=== PATIENT | male | born 1955 | race Two or more races ===

== ENCOUNTER 2020-06-08 15:47 | Outpatient (REF) | payer MEDICARE, SELFPAY | END 2020-06-08 15:48 | disposition home or self-care (01) | LOC: HO.LAB 15:47 | PROVIDERS: Visit Provider Internal Medicine | DX: Z20.828 Contact with and (suspected) exposure to other viral communicable diseases (principal) | CPT/HCPCS: C9803; U0003 ==

== ENCOUNTER 2020-07-19 16:18 | Outpatient (REF) | payer MEDICARE, SELFPAY ==
--- NOTE | ~2020-07-19 | US_ITS ---
EXAMINATION: US SOFT TISSUE OF THE NECK CLINICAL INFORMATION: Enlarged lymph nodes. COMPARISON: None TECHNIQUE: Linear transducer grayscale and color Doppler examination of the submandibular left neck. FINDINGS: Imaging to the left submandibular neck reveals two small lymph nodes measuring 0.74 cm with central fatty hilum and a 0.45 cm mid neck lymph node with a fatty hilum. These are benign. No additional lymph nodes or mass seen. US/US soft tiss head and/or neck IMPRESSION: There are two benign-appearing left neck lymph nodes in the submandibular space and left mid neck.
== END 2020-07-19 16:19 | disposition home or self-care (01) ==
LOC: HO.US 16:18
PROVIDERS: PCP Internal Medicine; Visit Provider Nurse Practitioner Family
DX: J02.9 Acute pharyngitis, unspecified (principal); R59.0 Localized enlarged lymph nodes
CPT/HCPCS: 76536

== ENCOUNTER 2021-10-18 09:34 | Outpatient (REF) | payer OTHER, SELFPAY ==
--- NOTE | ~2021-10-18 | XR_ITS ---
EXAMINATION: XR FOOT, RIGHT CLINICAL INFORMATION: Disorders of bone COMPARISON: None TECHNIQUE: AP, lateral, and oblique views of the right foot. FINDINGS: Bones of the midfoot are well aligned. No tarsal, metatarsal or phalangeal fracture. Mild diffuse degenerative changes of scattered IP joints. No focal soft tissue swelling. No radiopaque foreign body. Small posterior and plantar calcaneal enthesophytes. No gross ankle joint effusion. Facet calcifications noted. XR/XR foot RT min 3V IMPRESSION: Mild diffuse degenerative changes of the right foot. No fracture.
== END 2021-10-18 09:35 | disposition home or self-care (01) ==
LOC: HO.XRAY 09:34
PROVIDERS: PCP Internal Medicine; Visit Provider Internal Medicine
DX: M89.8X7 Other specified disorders of bone, ankle and foot (principal)
CPT/HCPCS: 73630

== ENCOUNTER → 2022-09-16 10:33 | Outpatient (REF) | payer OTHER, SELFPAY ==
--- NOTE | 2022-09-16 10:42 | ECG_ITS ---
Test Reason : CAD I25.118, R00.1 BRADYCARDIA, HYPOMAGNESEMIA E83.42 Blood Pressure : / mmHG Vent. Rate : 061 BPM Atrial Rate : 061 BPM P-R Int : 168 ms QRS Dur : 098 ms QT Int : 382 ms P-R-T Axes : 029 034 095 degrees QTc Int : 384 ms Normal sinus rhythm with sinus arrhythmia Nonspecific T wave abnormality Abnormal ECG No previous ECGs available Referred By: Glenny Jett Electronically Signed By:CATHERINE MACIAS MD
== END ==
LOC: HO.CARD 10:33
PROVIDERS: PCP Internal Medicine; Visit Provider Internal Medicine
DX: I25.118 Atherosclerotic heart disease of native coronary artery with other forms of angina pectoris (principal); R00.1 Bradycardia, unspecified; E83.42 Hypomagnesemia
CPT/HCPCS: 93005

== ENCOUNTER 2023-03-13 10:39 | Outpatient (REF) | payer OTHER, SELFPAY | END 2023-03-13 10:40 | disposition home or self-care (01) | LOC: HO.HHCL 10:39 | PROVIDERS: Visit Provider Internal Medicine | DX: E11.36 Type 2 diabetes mellitus with diabetic cataract (principal) | CPT/HCPCS: 36415; 80048; 80061; 82043; 82570; 84443 ==

== ENCOUNTER 2023-10-21 12:51 | Outpatient (REF) | payer OTHER, SELFPAY ==
--- NOTE | ~2023-10-21 | US_ITS ---
EXAMINATION: US arterial duplex LE BI CLINICAL INFORMATION: DECREASED PEDAL AND POPLITEAL PULSES TECHNIQUE: Real-time ultrasound and Doppler techniques (integrating B-mode 2-D vascular images, Doppler spectral analysis and color flow Doppler imaging) were utilized to interrogate the lower extremities. COMPARISON: None FINDINGS: RIGHT LEG: Common femoral artery: 115 cm/s, Triphasic Profunda femoris artery: 73 cm/s, Triphasic Superficial femoral artery (proximal): 107 cm/s, Triphasic Superficial femoral artery (mid): 83 cm/s, Triphasic Superficial femoral artery (distal): 91 cm/s, Triphasic Popliteal artery: 58 cm/s, Triphasic Posterior tibial artery: 71 cm/s, monophasic Peroneal artery: 47 cm/sec, triphasic LEFT LEG: Common femoral artery: 78 cm/s, triphasic Profunda femoris artery: 57 cm/s, biphasic Superficial femoral artery (proximal): 83 cm/s, Triphasic Superficial femoral artery (mid): 77 cm/s, Triphasic Superficial femoral artery (distal): 86 cm/s, Triphasic Popliteal artery: 85 cm/s, Triphasic Posterior tibial artery: 78 cm/s, Triphasic Peroneal artery: 62 cm/sec, triphasic US/US arterial duplex LE BI IMPRESSION: There is no evidence of any hemodynamically significant lower extremity arterial disease by waveform or duplex Doppler criteria at rest.
== END 2023-10-21 12:52 | disposition home or self-care (01) ==
LOC: HO.US 12:51
PROVIDERS: PCP Internal Medicine; Visit Provider Internal Medicine
DX: I25.118 Atherosclerotic heart disease of native coronary artery with other forms of angina pectoris (principal); E11.36 Type 2 diabetes mellitus with diabetic cataract; I10 Essential (primary) hypertension; R09.89 Other specified symptoms and signs involving the circulatory and respiratory systems
CPT/HCPCS: 93925

== ENCOUNTER 2023-10-31 12:21 | Outpatient (REF) | payer OTHER, SELFPAY ==
--- NOTE | ~2023-10-31 | XR_ITS ---
EXAMINATION: XR RIGHT SHOULDER XR THORACIC SPINE CLINICAL INFORMATION: Order states pain of right shoulder and upper back pain. Patient states he did not fall and has had the pain since [place]. TECHNIQUE: 3 views of the thoracic spine. 4 views of the right shoulder. COMPARISON: None available. FINDINGS: RIGHT SHOULDER: Moderate degenerative changes in the acromioclavicular joint with joint space narrowing and hypertrophic change. Median sternotomy wires partially imaged. Degenerative changes with hypertrophic change along the glenoid. Small soft tissue calcifications best seen along the superior aspect of the glenohumeral joint on the lateral view as well as along the anterior and posterior aspects of the humeral head on the axial view. THORACIC SPINE: Dextroscoliosis of the thoracic spine with degenerative changes and prominent anterior osteophytes most notable in the [id number] spine. Median sternotomy wires and mediastinal clips. Degenerative changes on very limited images of the cervical spine could be evaluated with dedicated cervical spine radiographs. XR/XR thoracic spine 2V IMPRESSION: 1. Moderate degenerative changes right acromioclavicular joint. 2. Degenerative changes right glenohumeral joint with soft tissue calcifications. 3. Dextroscoliosis of the thoracic spine with degenerative changes. 4. Degenerative changes on very limited images of the cervical spine could be evaluated with dedicated cervical spine radiographs.
--- NOTE | ~2023-10-31 | XR_ITS ---
EXAMINATION: XR RIGHT SHOULDER XR THORACIC SPINE CLINICAL INFORMATION: Order states pain of right shoulder and upper back pain. Patient states he did not fall and has had the pain since [place]. TECHNIQUE: 3 views of the thoracic spine. 4 views of the right shoulder. COMPARISON: None available. FINDINGS: RIGHT SHOULDER: Moderate degenerative changes in the acromioclavicular joint with joint space narrowing and hypertrophic change. Median sternotomy wires partially imaged. Degenerative changes with hypertrophic change along the glenoid. Small soft tissue calcifications best seen along the superior aspect of the glenohumeral joint on the lateral view as well as along the anterior and posterior aspects of the humeral head on the axial view. THORACIC SPINE: Dextroscoliosis of the thoracic spine with degenerative changes and prominent anterior osteophytes most notable in the [id number] spine. Median sternotomy wires and mediastinal clips. Degenerative changes on very limited images of the cervical spine could be evaluated with dedicated cervical spine radiographs. XR/XR shoulder RT min 2V IMPRESSION: 1. Moderate degenerative changes right acromioclavicular joint. 2. Degenerative changes right glenohumeral joint with soft tissue calcifications. 3. Dextroscoliosis of the thoracic spine with degenerative changes. 4. Degenerative changes on very limited images of the cervical spine could be evaluated with dedicated cervical spine radiographs.
== END 2023-10-31 12:22 | disposition home or self-care (01) ==
LOC: HO.HHCX 12:21
PROVIDERS: Visit Provider Internal Medicine
DX: M25.511 Pain in right shoulder (principal); M54.9 Dorsalgia, unspecified
CPT/HCPCS: 72070; 73030

== ENCOUNTER 2024-06-12 14:17 | Outpatient (REF) | payer OTHER, SELFPAY ==
[2024-06-13 08:40] LABS: Adenovirus PCR Not Detected (Not Detect.); Bordetella parapertussis PCR Not Detected (Not Detect.); Bordetella pertussis PCR Not Detected (Not Detect.); Chlamydia pneumoniae PCR Not Detected (Not Detect.); Coronavirus 229E PCR Not Detected (Not Detect.); Coronavirus HKU1 PCR Not Detected (Not Detect.); Coronavirus NL63 PCR Not Detected (Not Detect.); Coronavirus OC43 PCR Not Detected (Not Detect.); Human metapneumovirus PCR Not Detected (Not Detect.); Influenza A PCR Not Detected (Not Detect.); Influenza B PCR Not Detected (Not Detect.); Mycoplasma pneumoniae PCR Not Detected (Not Detect.); Parainfluenza 1 PCR Not Detected (Not Detect.); Parainfluenza 2 PCR Not Detected (Not Detect.); Parainfluenza 3 PCR Not Detected (Not Detect.); Parainfluenza 4 PCR Not Detected (Not Detect.); RSV PCR Not Detected (Not Detect.); Rhino/Enterovirus PCR Not Detected (Not Detect.)
[2024-06-13 09:56] LABS: SARS-CoV-2 PCR Not Detected (Not Detect.)
== END 2024-06-12 14:18 | disposition home or self-care (01) ==
LOC: HO.HHCLNP 14:17
PROVIDERS: Visit Provider Family Medicine
DX: J01.00 Acute maxillary sinusitis, unspecified (principal)
CPT/HCPCS: 87633

== ENCOUNTER 2024-11-09 09:34 | Outpatient (REF) | payer OTHER, SELFPAY ==
--- OUTSIDE RECORDS SUMMARY | 2024-11-09 10:41 | XMS_ITS | Encounter Summary ---
Author Organization [employer] Address [address] [place] [address] Care Team Providers Care Hauling Contractor Name Role Phone Glenny Jett MD Primary Care Provider + Reason for Visit * Reason Comments Med Refill Encounter Details Date Type Department Care Team (Late st Contact Info) Description 10/21/2022 Refill [facility] [address], [place] [phone] Glenny Jett MD [address] [place], [place] [phone] Social History Tobacco Use Types Packs/Day Years Used Date Smoking Tobacco: Never Passive Smoke Exposure: Never Smokeless Tobacco: Never Alcohol Use Standard Drinks/Week Comments Never 0 (1 standard drink = 0.6 oz pur e alcohol) Depression Answer Date Recorded Patient Health Questionnaire-9 Score 0 09/13/2022 Depression Answer Date Recorded Patient Health Questionnaire-2 Score 0 09/13/2022 Sex and Gender Information Value Date Recorded Sex Assigned at Male 04/08/2022 10:36 AM EDT Legal Sex Male 10:36 AM EDT Gender Identity Male 04/08/2022 10:36 AM EDT Sexual Orientation Straight 04/08/2022 10 :36 AM EDT documented as of this encounter Plan of Treatment Not on file documented as of this encounter Visit Diagnoses Not on filedocumented in this encounter Additional Health Concerns Assessment Noted Time PHQ-9 Depression Total Score: 0 09/14/19 23 10:50 AM EDT documented as of this encounter Care Teams Hauling Contractor Relationship Specialty Start Date End Date Glenny Jett MD [address] [place], [place] [phone] PCP - General Family Medicine 04/19/19 documented as of this encounter
[2024-11-09 12:19] LABS: Alanine Aminotransferase 36 U/L (0-40); Albumin Level 4.3 g/dL (3.5-5.0); Alkaline Phosphatase 87 U/L (39-117); Anion Gap 8 (12-20); Aspartate Amino Transferase 26 U/L (5-37); Bilirubin Total 0.5 mg/dL (0.0-1.0); Blood Urea Nitrogen 21 mg/dL (9-16); Calcium 9.1 mg/dL (8.4-10.2); Carbon Dioxide 28 mmol/L (22-29); Chloride 107 mmol/L (96-108); Cholesterol 129 mg/dL (<200); Estimated Glomerular Filt Rate > 60; Glucose Random 192 mg/dL (60-115); HDL Cholesterol 32 mg/dL (>40); LDL Cholesterol Calculated 67 mg/dL (<100); Sodium 139 mmol/L (135-145); Total Protein 6.6 g/dL (6.5-8.0); Triglycerides 154 mg/dL (<150)
[2024-11-09 12:30] LABS: Creatinine Urine 183.27 mg/dL; Microalbum/Creatinine Ratio Ur 26.7 ug/mg cr (<30)
[2024-11-09 12:38] LABS: TSH reflex Free T4 1.26 uIU/mL (0.32-4.0); Vitamin D 25-OH Total 55.3 ng/mL (>30)
[2024-11-09 13:29] LABS: Reflex LDLD? No
== END 2024-11-09 09:35 | disposition home or self-care (01) ==
LOC: HO.HHCL 09:34
PROVIDERS: Visit Provider Internal Medicine
DX: E11.36 Type 2 diabetes mellitus with diabetic cataract (principal)
CPT/HCPCS: 36415; 80053; 80061; 82043; 82306; 82570; 84443